=== PATIENT | female | born 1960 | race Caucasian/White ===

== ENCOUNTER → 2016-09-05 | Outpatient (CLI) | payer BC, MEDICARE ==
[~2016-09-05] VITALS: Ht 167.6 cm; Wt 77.1 kg
[~2016-09-05] MED LIST: ALEN70TA5 PO; ASCO10002 PO; CHOL5000 PO; CITA20TA5 PO; CRAN1CAP3 PO; LIDOCAINE 1% / SOD BICARB 8.4% 20 ML VIAL. IJ ONE; LIDOCAINE 2%/EPI 1:100,000 20 ML VIAL. IJ ONE; MULT1TAB52 PO; NICO1PAT25 TD; OMEG100021 PO
[2016-09-05 09:42] VITALS: BP 133/74
--- NOTE | 2016-09-05 11:26 | RAD ---
Indication suspect calcifications right breast. Note is made of examinations in June,. Suspect calcifications were identified in the right breast for which biopsy had been recommended. Those exams were reviewed. Image guided biopsy was discussed with the patient. The risks of infection and bleeding were outlined. The patient understood the risks associated with the procedure and wished to proceed. The patient was placed prone on the biopsy table and the suspect calcifications were identified and targeted. The skin was prepped and draped in the routine fashion. Local anesthesia was accomplished with 1% lidocaine. Biopsy probe was introduced. Deeper anesthesia was obtained with lidocaine epinephrine. Samples were obtained. Specimen radiograph was performed. [employer] Site Supervisor microcalcifications were retrieved. A biopsy clip was deployed at the biopsy site. Patient tolerated the procedure unremarkably. Post biopsy clip deployment images were obtained. The clip appears to be positioned appropriately on the MLO image but the clip is appears somewhat lateral (deep) to the biopsy site on the CC image. (A medial to lateral biopsy approach was selected). There are no significant residual microcalcifications seen on the post biopsy mammograms. The biopsy site was dressed in the routine fashion the patient discharged with appropriate instructions. IMPRESSION: Successful sampling of suspect calcifications in the right breast. The biopsy clip appears to be deep, medial, to the biopsy site on the CC image.
--- NOTE | 2016-09-06 16:38 | PATHOLOGY ---
PATHOLOGY REPORT * * * * * * * * FINAL DIAGNOSIS: Breast tissue, right breast core biopsies: - Focal fibrocystic and fibroadenomatous changes with focal calcifications. COMMENT: Sections of the right breast core biopsies show focal fibrocystic and fibroadenomatous changes. The latter has a somewhat myxoid appearing stroma and shows focal associated calcifications. There is no evidence of atypia or malignancy. (JPM:mgbarbie; d/t: 09/06/16) REPORT ELECTRONICALLY SIGNED BY: Curtis Becker M.D. DATE/TIME: 09/06/2016 16:37 * * * * * * * * GROSS PATHOLOGY: Received in formalin labeled "Radha Joseph, right breast tissue," are multiple needle cores of yellow-joseph fibrofatty tissue measuring 3.2 x 3.0 x 0.6 cm in aggregate dimensions. Also received is a plastic cassette containing multiple cores of yellow-joseph fibrofatty tissue measuring 2.8 x 1.9 x 0.4 cm in aggregate dimensions. The tissue in the cassette is transferred to cassette A1, and the remaining tissue is submitted in its entirety in cassette A2 and A3. The cold ischemic time is 10 minutes. The total formalin fixation time is 8 hours and 57 minutes. (CAA; 09/05/2016) INITIAL CPT CODE(S): A; 38460 Professional services performed by [facility] [place] [address] Technical services performed by [facility] at [address] [place] [address] [address] [address]. SPECIMEN(S) RECEIVED: A.Right breast tissue CLINICAL HISTORY: Calcifications PATIENT: RADHA JOSEPH /AGE: 602/13/1960 (Age: 56) PATIENT #: [id number] ALT CASE #: SPECIMEN COLLECTION DATE: 09/05/2016 SPECIMEN RECEIVED DATE: 09/05/2016 [facility] - [address] [place] [address] - PHONE: [phone] * * * END OF REPORT * * *
== END | disposition home or self-care (01) ==
LOC: MAMMO 10:19
PROVIDERS: ATTEND Internal Medicine
DX: R92.8 Other abnormal and inconclusive findings on diagnostic imaging of breast (principal); R92.0 Mammographic microcalcification found on diagnostic imaging of breast
CPT/HCPCS: 19085; 77022; C1713; G0206; J3490

== ENCOUNTER → 2017-03-01 | Day surgery (SDC) | payer BC, MEDICARE ==
[~2017-03-01] MED LIST changes: +HYDROmorphone 2 MG/ML VIAL IV PRN; +IV RINGERS,LACTATED 1000ML 1,000 ML IV SCH; -LIDOCAINE 1% / SOD BICARB 8.4% 20 ML VIAL. IJ ONE; +LIDOCAINE 1% 1 ML SYRINGE. ID PRN; +LIDOCAINE 2% PF Vial for OR 5 ML VIAL. ONE; -LIDOCAINE 2%/EPI 1:100,000 20 ML VIAL. IJ ONE; +MORPHINE SULFATE 2 MG/ML DISP.SYRIN. IV PRN; +PROCHLORPERAZINE 10 MG/2 ML VIAL. IV PRN; +PROPOFOL 20 ML IV ONE; +PROPOFOL 40 ML IV ONE; +fentaNYL PF VIAL 100 MCG/2 ML VIAL IV PRN
[2017-03-01 08:43] VITALS: BP 123/73
--- NOTE | 2017-03-01 09:39 | PDOC2 ---
GI CONSULT Reason For Consult: Colonoscopy HPI: HPI: 57 y/o female who present for colonoscopy. Significant symptoms include blood in stool. PMH: PMH: OA, GERD, colon polyps, hemorrhoids, osteoporosis, anxiety, hysterectomy, right breast biopsy, bunion removal FH: Family History: Other (Parkinson's) Social History: Smoke: 1 pack per day ALCOHOL: rare Drugs: None ROS: GEN: Denies fevers, chills, sweats HEENT: Denies blurred vision, sore throat CV: Denies chest pain RESP: Denies shortness of air, cough GI: Per HPI : Denies hematuria, dysuria ENDO: Denies weight changes NEURO: Denies confusion, dizziness MSK: Denies weakness, joint pain/swelling SKIN: Denies jaundice, pruritus Vitals: Vitals: Vital Signs Date Time Temp Pulse Resp B/P (MAP) Pulse Ox O2 Delivery O2 Flow Rate FiO2 03/01/17 08:43 84 20 123/73 96 Room Air 03/01/17 08:18 97.7 2 97.7 Allergies: Coded Allergies: Penicillins (Verified Allergy, Intermediate, Rash, 03/01/17) Medications: Current Medications Medications (Trade) Dose Ordered Sig/Aura Route PRN Reason Start Time Stop Time Status Last Admin Dose Admin Ringer's Solution 1,000 ml @ 30 mls/hr Q24H IV 03/01/17 07:00 03/01/17 18:59 03/01/17 06:59 Please see EMR. PE: GEN: NAD HEENT: Atraumatic, PERRL LUNGS: CTAB HEART: RRR ABD: NABS, S/ND/NT EXTREMITY: No edema SKIN: No rashes, no jaundice NEURO/PSYCH: A & O 3 A/P: A/P: Blood in stool H/o colon polyps -- Proceed w/ colonoscopy for further evaluation, r/o malignancy. Further recommendations pending findings. REMA AYALA Mar 01, 2017 09:39
--- NOTE | 2017-03-04 14:25 | PATHOLOGY ---
PATHOLOGY REPORT * * * * * * * * FINAL DIAGNOSIS: Colon biopsies, sigmoid colon: - Active chronic colitis with focal acute cryptitis/crypt abscesses. See comment. COMMENT: Sections of the sigmoid colon biopsy reveal multiple segments of colonic mucosa showing moderate active chronic inflammation with focal acute cryptitis and crypt abscesses. There are no granulomas. All of the biopsy segments appear to show a similar degree of inflammation. The findings are consistent with chronic inflammatory bowel disease. Correlate with clinical and endoscopic findings. (JPM:pit; 03/04/2017) REPORT ELECTRONICALLY SIGNED BY: Curtis Becker M.D. DATE/TIME: 03/04/2017 14:25 * * * * * * * * GROSS PATHOLOGY: Received in formalin labeled "Radha Joseph, sigmoid colon biopsy, r/o colitis," are multiple segments of pierce soft tissue measuring from less than 0.1 up to 0.2 cm in maximum dimension. The specimen is submitted entirely in cassette A1. (JPM; 03/01/17) INITIAL CPT CODE(S): A; 05179 Professional services performed by [facility] [place] [address] Technical services performed by [facility] at [address] [place] [address], [facility] [address], [place] [address]. SPECIMEN(S) RECEIVED: A.Sigmoid biopsy, r/o colitis CLINICAL HISTORY: Hematochezia PATIENT: RADHA JOSEPH /AGE: 602/13/1960 (Age: 57) PATIENT #: [id number] ALT CASE #: SPECIMEN COLLECTION DATE: 03/01/2017 SPECIMEN RECEIVED DATE: 03/01/2017 [facility] - [address] [place] [address] - PHONE: [phone] * * * END OF REPORT * * *
== END | disposition home or self-care (01) ==
LOC: ENDOS 06:18
PROVIDERS: ATTEND Internal Medicine Gastroenterology
DX: K64.0 First degree hemorrhoids (principal); K57.30 Diverticulosis of large intestine without perforation or abscess without bleeding; K21.9 Gastro-esophageal reflux disease without esophagitis; F41.9 Anxiety disorder, unspecified; F17.200 Nicotine dependence, unspecified, uncomplicated; Z86.69 Personal history of other diseases of the nervous system and sense organs; Z90.710 Acquired absence of both cervix and uterus; Z87.39 Personal history of other diseases of the musculoskeletal system and connective tissue; Z72.89 Other problems related to lifestyle; Z88.0 Allergy status to penicillin
CPT/HCPCS: 45380; 88305; J2704

== ENCOUNTER → 2020-10-19 | Outpatient (CLI) | payer MEDICARE ==
[2017-03-01 08:43] VITALS: BP 123/73
[~2020-10-19] MED LIST changes: -ALEN70TA5 PO; +ALEN70TA71 PO; +ASCO100019 PO; -ASCO10002 PO; -CITA20TA5 PO; +CITA20TA6 PO; -HYDROmorphone 2 MG/ML VIAL IV PRN; -IV RINGERS,LACTATED 1000ML 1,000 ML IV SCH; -LIDOCAINE 1% 1 ML SYRINGE. ID PRN; -LIDOCAINE 2% PF Vial for OR 5 ML VIAL. ONE; -MORPHINE SULFATE 2 MG/ML DISP.SYRIN. IV PRN; +MULT-445 PO; -MULT1TAB52 PO; -PROCHLORPERAZINE 10 MG/2 ML VIAL. IV PRN; -PROPOFOL 20 ML IV ONE; -PROPOFOL 40 ML IV ONE; -fentaNYL PF VIAL 100 MCG/2 ML VIAL IV PRN
--- NOTE | 2020-10-19 14:46 | RAD ---
L-spine 2 views INDICATION: Back pain. Lumbar radiculopathy FINDINGS: Upright lateral flexion and upright lateral extension views of the lumbar spine were obtained These show of the lumbar spine with subtle anterolisthesis of L4-L5 and approximately 6 mm. Mild ante rolisthesis of L5 on S1 is also seen of approximately 5 mm. The lumbar spine is otherwise straightene d in flexion. With extension, there is slight reduction in anterolisthesis at L4-L5 and to lesser ext ent at L5-S1. Bones are demineralized. Facet hypertrophic changes are present most conspicuously at L4-5 and L5-S1. No acute fracture or aggressive appearing bony lesions are seen. The discs show multilevel disc space narrowing throughout the lumbar spine, this is more conspicuous in the dorsal L2-L3 level with posterior narrowing present. Soft tissues show aortic calcification. IMPRESSION: Slight reduction in anterolisthesis at L4-L5 with extension could reflect some degree of abnormal mot ion. The lumbar spine otherwise is straightened in flexion with multilevel disc and facet degenerativ e changes as described. Electronically signed by: Mark Hebert MD (10/19/2020 2:43 PM) [id number]
== END ==
LOC: RAD 12:17
PROVIDERS: ATTEND Neurological Surgery
DX: M47.26 Other spondylosis with radiculopathy, lumbar region (principal); M48.061 Spinal stenosis, lumbar region without neurogenic claudication
CPT/HCPCS: 72120

== ENCOUNTER → 2020-10-31 | Outpatient (CLI) | payer MEDICARE ==
[2017-03-01 08:43] VITALS: BP 123/73
--- NOTE | 2020-10-31 11:38 | RAD ---
PROCEDURE: XR BILATERAL HIP (WITH OR WITHOUT PELVIS) 2 VIEWS_RIGHT STUDY DATE: 10/31/2020 CLINICAL INDICATION / HISTORY: Reason: BURSITIS / Spl. Instructions: / History: . TECHNIQUE: Three views of the right hip were obtained. COMPARISON: None FINDINGS: The osseous structures are normally mineralized. There is normal bony alignment present wit h the femoral heads well-seated within the acetabuli. There is no evidence of acute fracture or dislo cation identified. The overlying soft tissues are grossly unremarkable. IMPRESSION: Unremarkable examination of the right hip. Electronically signed by: Mark Hebert MD (10/31/2020 11:35 AM) [id number]
== END ==
LOC: RAD 11:11
PROVIDERS: ATTEND Neurological Surgery
DX: M70.71 Other bursitis of hip, right hip (principal)
CPT/HCPCS: 73502